=== PATIENT | female | born 1990 | race Caucasian/White ===

== ENCOUNTER 2017-05-08 13:41 | Emergency (ER) | payer OTHER ==
[2017-05-08 13:48] VITALS: BP 143/85
--- NOTE | 2017-05-08 14:07 | UC ---
Throat Pain/Nasal Adebayo HPI - HPI Summary HPI Summary: 26F presents with right ear pain for 3 days. She states since then the pain has radiated down her jaw and she has developed a sore throat. She has history of tonsillitis but no history of strept. She had a fever yesterday that resolved with Tylenol. She denies any sinus pressure. She admits to a headache. She denies any cough, chest pain, SOB. She denies any abdominal pain or nausea or vomiting. She denies any history of mono. no one else is sick. She denies any dental pain. - History of Current Complaint Chief Complaint: UCRespiratory Stated Complaint: HEADACHE, SORE THOAT, AND EAR ACHE Time Seen by Provider: 05/08/17 13:52 Hx Last Menstrual Period: 05/04/17 - Allergies/Home Medications Allergies/Adverse Reactions: Allergies Allergy/AdvReac Type Severity Reaction Status Date / Time No Known Allergies Allergy Verified 05/08/17 13:44 PMH/Surg Hx/FS Hx/Imm Hx Endocrine History: Hypothyroidism GI/ History: Other Other GI/ History: PCOS - Surgical History Surgical History: None - Family History Known Family History: Positive: Cardiac Disease, Hypertension, Diabetes - Social History Alcohol Use: Rare Substance Use Type: None Smoking Status (MU): Light Every Day Tobacco Smoker Type: Cigarettes Amount Used/How Often: 1/2 PPD Length of Time of Smoking/Using Tobacco: 13+ YEARS Have You Smoked in the Last Year: Yes Review of Systems Constitutional: Fever ENT: Sore Throat, Ear Ache Respiratory: Negative Cardiovascular: Negative All Other Systems Reviewed And Are Negative: Yes Physical Exam Triage Information Reviewed: Yes Appearance: Well-Appearing Vital Signs: Initial Vital Signs Temp 98 F 05/08/17 13:45 Pulse 98 05/08/17 13:45 Resp 18 05/08/17 13:45 BP 143/85 05/08/17 13:45 Pulse Ox 99 05/08/17 13:45 Vital Signs Reviewed: Yes Eyes: Positive: Conjunctiva Clear ENT: Positive: Pharyngeal erythema, TMs normal, Tonsillar swelling, Other: - uvula midline, soft palate symmetric, tonsils+3, left ear pain with manipulation of tragus and ear canal red and edematous. Negative: Tonsillar exudate, Trismus, Muffled/hoarse voice Neck: Positive: Supple, Nontender, No Lymphadenopathy Respiratory: Positive: Lungs clear, Normal breath sounds Cardiovascular: Positive: RRR Abdomen Description: Positive: Nontender, Soft Bowel Sounds: Positive: Present Musculoskeletal Exam: Normal Neurological Exam: Normal Psychological Exam: Normal Throat Pain/Nasal Course/Dx - Course Course Of Treatment: 26F presents with right ear pain for 3 days. She states since then the pain has radiated down her jaw and she has developed a sore throat. She has history of tonsillitis but no history of strept. She had a fever yesterday that resolved with Tylenol. She denies any sinus pressure. She admits to a headache. She denies any cough, chest pain, SOB. She denies any abdominal pain or nausea or vomiting. She denies any history of mono. no one else is sick. She denies any dental pain. on exam has normal TM. left ear pain with manipulation of tragus and ear canal red and erythematous so will treat as otitis externa. tonsils+3 erythema with uvula midline, soft palate symmetric. strept neg. will treat with ciprodex, decadron and magic mouth wash. medications reviewed. told to follow up with primary about blood pressure within a week. patient understands and agrees with plan. - Differential Dx/Diagnosis Differential Diagnosis/HQI/PQRI: Otitis Media, Pharyngitis, Tonsillitis, URI, Other - otitis externa Provider Diagnoses: otitis externa, pharyngitis Discharge - Discharge Plan Condition: Good Disposition: HOME Prescriptions: Ciproflox/Dexameth OTIC.SUSP* [Ciprodex OTIC.SUSP*] 1 drop .SEE ORDER BID #1 btl Dexamethasone TAB* [Decadron TAB*] 4 mg PO DAILY #5 tab Magic Mouth Was-ARIK/MAAL/LIDO* 5 ml SWISH SPIT QID #100 ml Patient Education Materials: Otitis Externa (ED), Pharyngitis (ED) Referrals: Edward Hemphill MD [Primary Care Provider] - Additional Instructions: Use 4 drops twice a day for 7 days into left ear Magic mouthwash 5ml swish and spit can use 4x a day Take steroid once a day for 5 days Take Tylenol or ibuprofen for pain every 6 hours Can gargle salt water Can use cough drops or products such as cloraseptic spray Follow up with primary in a week to make sure resolving and about blood pressure Return to ED if develop any new or worsening symptoms
== END 2017-05-08 14:20 | disposition home or self-care (01) ==
LOC: UCEAST 13:41
DX: H60.91 Unspecified otitis externa, right ear (principal); E03.9 Hypothyroidism, unspecified; F17.210 Nicotine dependence, cigarettes, uncomplicated; J02.9 Acute pharyngitis, unspecified
CPT/HCPCS: 87651; 99211; G0463

== ENCOUNTER 2017-12-05 20:52 | Emergency (ER) | payer SELFPAY ==
[2017-12-05 21:03] VITALS: BP 151/102
[2017-12-05] MEDS ORDERED: Amoxicillin PO (*) 500 MG CAP PO ONE (21:19)
--- NOTE | 2017-12-05 21:19 | UC ---
Throat Pain/Nasal Adebayo HPI - HPI Summary HPI Summary: Pt presents with sore throat and fever for the last 2 days. She had some leftover magic mouthwash at home and took this for pain relieve with mild relief. Denies sinus symptoms, cough, SOB, chest pain, abdominal pain, n/v/d/c. - History of Current Complaint Chief Complaint: UCRespiratory Stated Complaint: SORE THROAT Time Seen by Provider: 12/05/17 21:18 Hx Obtained From: Patient Hx Last Menstrual Period: 10/09/17 Onset/Duration: Gradual Onset Severity: Severe Pain Intensity: 9 Pain Scale Used: 0-10 Numeric - Allergies/Home Medications Allergies/Adverse Reactions: Allergies Allergy/AdvReac Type Severity Reaction Status Date / Time No Known Allergies Allergy Verified 12/05/17 21:03 Home Medications: Home Medications Ibuprofen TAB* [Advil TAB*] 600 mg PO ONCE PRN 12/05/17 [History Confirmed 12/05] PMH/Surg Hx/FS Hx/Imm Hx - Additional Past Medical History Additional PMH: None - Surgical History Surgical History: None - Family History Known Family History: Positive: Cardiac Disease, Hypertension, Diabetes - Social History Occupation: Unemployed Lives: With Family Alcohol Use: Occasionally Substance Use Type: None Smoking Status (MU): Former Smoker Type: Cigarettes Amount Used/How Often: 1/2 PPD Length of Time of Smoking/Using Tobacco: 13+ YEARS Have You Smoked in the Last Year: Yes Review of Systems Constitutional: Fever Skin: Negative Eyes: Negative ENT: Sore Throat Respiratory: Negative Cardiovascular: Negative Gastrointestinal: Negative Neurovascular: Negative Neurological: Negative Psychological: Negative All Other Systems Reviewed And Are Negative: Yes Physical Exam - Summary Physical Exam Summary: GENERAL: Mild pain distress. Obese. SKIN: No rashes, sores, lesions, or open wounds. HEENT: Head: AT/NC Eyes: Conjunctiva clear without inflammation or discharge. Ears: Hearing grossly normal. TMs intact, no bulging, erythema, or edema. Nose: Nasal mucosa pink and moist. NTTP maxillary and frontal sinus. Throat: Posterior oropharynx moderate erythema and 3+ tonsillar enlargement. No exudates. Uvula midline. No hoarse voice or muffled voice. NECK: Supple. Tonsillar LAD TTP. CHEST: CTAB. No r/r/w. No accessory muscle use. Breathing comfortably and in no distress. CV: RRR. Without m/r/g. Pulses intact. Brisk cap refill. NEURO: Alert. CN II-XII grossly intact. PSYCH: Age appropriate behavior. Triage Information Reviewed: Yes Vital Signs: Initial Vital Signs Temp 100.2 F 12/05/17 20:59 Pulse 138 12/05/17 20:59 Resp 22 12/05/17 20:59 BP 151/102 12/05/17 20:59 Pulse Ox 100 12/05/17 20:59 Throat Pain/Nasal Course/Dx - Course Course Of Treatment: POC strep positive. Amoxicillin and magic mouthwash for pain relief. - Differential Dx/Diagnosis Provider Diagnoses: Strep pharyngitis Discharge - Sign-Out/Discharge Documenting (check all that apply): Discharge/Admit/Transfer - Discharge Plan Condition: Stable Disposition: HOME Prescriptions: Amoxicillin PO (*) [Amoxicillin 500 MG CAP*] 500 mg PO Q12H #20 cap Magic Mouth Was-ARIK/MAAL/LIDO* 5 ml SWISH SWAL QID PRN #100 ml PRN Reason: Pain Patient Education Materials: Strep Throat (ED) Referrals: Edward Hemphill MD [Primary Care Provider] - Additional Instructions: If you develop a fever, shortness of breath, chest pain, new or worsening symptoms - please call your PCP or go to the ED. Your blood pressure was high at todays visit. Please see your primary provider within 4 weeks for recheck and re-evaluation. - Billing Disposition and Condition Condition: STABLE Disposition: HOME
== END 2017-12-05 21:30 | disposition home or self-care (01) ==
LOC: UCEAST 20:52
DX: J02.0 Streptococcal pharyngitis (principal); Z87.891 Personal history of nicotine dependence
CPT/HCPCS: 87651; 99212; A9270-GY; G0463